=== PATIENT | male | born 1945 | race Two or more races ===

== ENCOUNTER 2025-07-16 12:08 | Inpatient (IN) | payer MEDICARE, OTHER ==
[~2025-07-16] VITALS: Ht 193 cm; Wt 76.9 kg
[2025-07-16 13:38] LABS: Hemoglobin 16.7 g/dL (13.5-17.5)
[2025-07-16 13:39] LABS: Hematocrit 51.4 % (41.0-53.0); Mean Corpuscular Hemoglobin 33.8 pg (28.0-32.0); Mean Corpuscular Volume 104.1 fL (80.0-100.0); Nucleated Red Blood Cells % 0.0 %
[2025-07-16 13:43] LABS: Potassium 3.6 mmol/L (3.5-5.1); Sodium 143 mmol/L (136-145)
[2025-07-16 13:44] LABS: Anion Gap 10 (5-15); Calcium 9.6 mg/dL (8.7-10.4); Carbon Dioxide 23 mmol/L (20-31)
--- NOTE | 2025-07-16 13:45 | ECG ---
[facility] Test Date: 2025-07-16 Test Time: 12:14:36 Pat Name: ZITA GHOSH Department: [facility] ED Patient ID: [facility]-[id number] Room: Gender: M Medical Technologist: CONCEPCION : 1945 Requested By: ROCÍO CHARLES Order Number: [id number] Reading MD: Graeme Sneed Measurements Intervals [place] Rate: 78 P: -41 [place]: 192 QRS: 7 QRSD: 157 T: 217 QT: 439 QTc: 501 Interpretive Statements Sinus rhythm Left bundle branch block Baseline wander in lead(s) II,III,aVR,aVF Electronically Signed On 07-16-2025 18:52:24 PDT by Graeme Sneed Please click the below link to view image of tracing.
[2025-07-16 13:49] LABS: BUN/Creatinine Ratio 13.7 (10.0-20.0); Blood Urea Nitrogen 22 mg/dL (9-23); Chloride 110 mmol/L (98-107); Glucose 143 mg/dL (74-106)
--- NOTE | 2025-07-16 14:01 | ED.PDOC ---
History of Present Illness HPI Comments 80 y/o M is BIBA with c/c of syncope. Per EMS personnel report, patient had a unprovoked syncopal episode onset, while standing in line in a smoke shop, earlier, today. Patient reports on becoming, suddenly, dizzy prior to passing out and was assisted to the ground without injury or trauma by bystanders. He also states on having chronic nausea, vomiting, and diarrhea secondary to undiagnosed GI-related issue that his PCP is unable to diagnosed. Denial of any bloody vomitus or stools, chest pain, shortness of breath, or further acute symptoms. Chief Complaint: Diarrhea Time Seen by MD: 12:45 Reviewed Notes: Nurses Notes, Extraction Supervisor Notes, Medications, Allergies Allergies: Coded Allergies: NO KNOWN ALLERGIES (Unverified , 07/16/25) Information Source: Patient, Emergency Med Personnel Mode of Arrival: EMS Severity: Moderate Timing: Hours Duration: Minutes Prehospital treatment: 12 Lead EKG, Accucheck, Geophysical Support Specialist Past Medical History Past Medical History (Other): Chronic GI issues Surgical History: Denies all surgeries Social History Smoker: Cigarettes Alcohol: Occasionally Drugs: Denies Drug Use Lives In: Home All Other Systems: Reviewed and Negative (Comprehensive review of systems are negative unless stated in HPI) Physical Exam General Appearance: Moderate Distress, Thin HEENT: Normal ENT Inspection, Pharynx Normal, TMs Normal Neck: Full Range of Motion, Non-Tender, Normal, Normal Inspection Respiratory: Chest Non-Tender, Lungs Clear, No Accessory Muscle Use, No Respiratory Distress, Normal Breath Sounds Cardiovascular: No Edema, No JVD, No Murmur, No Gallop, Normal Peripheral Pulses, Regular Rate/Rhythm Breast Exam: Deferred Gastrointestinal: No Organomegaly, Non Tender, No Pulsatile Mass, Normal Bowel Sounds, Soft Genitalia: Deferred Pelvic: Deferred Rectal: Deferred Extremities: No calf tenderness, Normal capillary refill, Normal inspection, Normal range of motion, Non-tender, No pedal edema Musculoskeletal : Apperance: Normal Neurologic: Alert, golf club maker II-XII nml as Tested, No Motor Deficits, Normal Affect, Normal Mood, No Sensory Deficits Cerebellar Function: Normal Reflexes: Normal Skin: Normal Color Peripheral Pulses: 3+ Radial (R), 3+ Radial (L) Lymphatic: No Adenopathy Was a procedure done? Was a procedure done?: No EKG EKG : Pulse Rate (adult): 78 [place]: Normal Cardiac Rhythm: NSR Block: LBBB Hypertrophy: None ST: Normal Differential Dx Considerations may include: vasovagal response, dehydration, electrolyte imbalance, malnutrition, gastritis, gastroenteritis, substance dependency, among others X-Ray, Labs, Meds, VS Vital Signs Date Time Temp Pulse Resp B/P (MAP) Pulse Ox O2 Delivery O2 Flow Rate FiO2 07/16/25 14:01 78 07/16/25 13:50 97.7 85 16 108/67 (81) 96 97.7 07/16/25 12:21 98.0 81 16 133/69 94 98.0 07/16/25 12:16 78 Lab Test 07/16/25 13:27 Range/Units White Blood Count 21.8 H 4.4-10.8 10^3/uL Red Blood Count 4.94 4.5-5.90 10^6/uL Hemoglobin 16.7 13.5-17.5 g/dL Hematocrit 51.4 41.0-53.0 % Mean Corpuscular Volume 104.1 H 80.0-100.0 fL Mean Corpuscular Hemoglobin 33.8 H 28.0-32.0 pg Mean Corpuscular Hemoglobin Concent 32.5 32.0-36.0 g/dL Red Cell Distribution Width 14.2 11.8-14.3 % Platelet Count 270 140-450 10^3/uL Mean Platelet Volume 7.8 6.9-10.8 fL Neutrophils (%) (Auto) 86.7 H 37.0-80.0 % Lymphocytes (%) (Auto) 3.8 L 10.0-50.0 % Monocytes (%) (Auto) 8.8 0.0-12.0 % Eosinophils (%) (Auto) 0.6 0.0-7.0 % Basophils (%) (Auto) 0.1 0.0-2.0 % Neutrophils # (Auto) 18.9 H 1.6-8.6 10 ^3/uL Lymphocytes # (Auto) 0.8 0.4-5.4 10 ^3/uL Monocytes # (Auto) 1.9 H 0-1.3 10 ^3/uL Eosinophils # (Auto) 0.1 0-0.8 10 ^3/uL Basophils # (Auto) 0 0-0.2 10 ^3/uL Nucleated Red Blood Cells 0.0 % Sodium Level 143 136-145 mmol/L Potassium Level 3.6 3.5-5.1 mmol/L Chloride Level 110 H 98-107 mmol/L Carbon Dioxide Level 23 20-31 mmol/L Anion Gap 10 5-15 Blood Urea Nitrogen 22 9-23 mg/dL Creatinine 1.61 H 0.700-1.30 mg/dL Glomerular Filtration Rate Calc 43 >90 mL/min BUN/Creatinine Ratio 13.7 10.0-20.0 Serum Glucose 143 H 74-106 mg/dL Calcium Level 9.6 8.7-10.4 mg/dL Current Medications Medications (Trade) Dose Ordered Sig/Jos Route Start Time Stop Time Status Last Admin Sodium Chloride 1,000 ml @ 1,000 mls/hr Q1H ONCE IV 07/16/25 12:15 07/16/25 13:14 DC 07/16/25 14:03 Patient alert. Came in because of diarrhea. Abdomen is soft. Vitals stable. Establish intravenous access. Was given fluids. Was given Rocephin. Was given Flagyl. Blood sugar elevated. Controlled with fluids. Explained to the patient. Continue monitoring. Time of 1ST Reevaluation: 13:15 Reevaluation 1ST: Unchanged Patient Education/Counseling: Diagnosis, Treatment Family Education/Counseling: No Family Present SEPSIS Sepsis Screen Date sepsis recognized/suspect: Jul 16, 2025 Time Sepsis recognized/suspect: 1224 Recent Procedure: No On Antibiotic Therapy: No Respiratory Rate >20: No Heart Rate >90: No Temp<36 C (96.8 F) or >38.3 C: No SBP <90 or MAP <65 mmHG: No New Acute Mental Status Change: No Is the patient on CPAP, BIPAP,: No Physician Orders Chest Portable (07/16/25 12:14) Urinalysis (07/16/25 12:14) Metronidazole 500mg/100ml (Flagyl 500mg/ (07/16/25 13:15) Blood Culture (07/16/25 14:06) Lactic Acid W/ Reflex Order (07/16/25 14:06) Vital Signs Date Time Temp Pulse Resp B/P (MAP) Pulse Ox O2 Delivery O2 Flow Rate FiO2 07/16/25 14:01 78 07/16/25 13:50 97.7 85 16 108/67 (81) 96 97.7 10/18/25 12:21 98.0 81 16 133/69 94 98.0 07/16/25 12:16 78 Laboratory Tests Test 07/16/25 13:27 White Blood Count 21.8 10^3/uL (4.4-10.8) H Medications Medications Dose Ordered Sig/Jos Route Start Time Stop Time Status Last Admin Dose Admin Sodium Chloride 1,000 ml @ 1,000 mls/hr Q1H ONCE IV 07/16/25 12:15 07/16/25 13:14 DC 07/16/25 14:03 Departure 1 Departure Time of Disposition: 14:08 Impression: Primary Impression: Colitis, enteritis, and gastroenteritis of presumed infectious origin Disposition: ADMITTED INPATIENT Admit to: Med Surg Condition: Guarded Critical Care Note Critical Care Time?: Yes (90 min-critical care time only) Stability Stability form required: No Heart Score Heart Score: Heart Score Response (Comments) Value History N/A 0 EKG N/A 0 Age N/A 0 Risk Factors N/A 0 Troponin N/A 0 Total 0 I personally scribed for ROCÍO CHARLES MD ([email or web address]) on 07/16/25 at 14:01. Electronically submitted by Shaji Alonso [email or web address]). ROCÍO CHARLES MD Jul 16, 2025 14:01
[2025-07-16] MEDS: SODIUM CHLORIDE 0.9% 1,000 ML IV ONE (14:03)
[2025-07-16] MEDS: ONDANSETRON HCL 4 MG/2 ML VIAL IV ONE (14:16)
[2025-07-16] MEDS: DIPHENOXYLATE W/ATROPINE 2.5 MG TAB PO ONE (14:17)
[2025-07-16 14:30] VITALS: PULSE 93; RESP 20; O2SAT 96
--- NOTE | 2025-07-16 14:33 | DVH ---
CHEST RADIOGRAPH Indication: sob Technique: XY CHEST PORTABLE Comparison: None FINDINGS: The cardiac silhouette is unremarkable. The lungs demonstrate left basilar airspace opacities.. The p ulmonary vasculature is unremarkable. Left costophrenic angle not well characterized. Aortic atheros clerotic disease. There is no pneumothorax. IMPRESSION: Left basilar airspace opacification
[2025-07-16 18:18] LABS: Urine Protein, UAD TRACE (Negative)
[2025-07-16] MEDS ORDERED: ACETAMINOPHEN 325 MG TAB PO PRN (19:00)
[2025-07-16] MEDS ORDERED: DOCUSATE SOD 100 MG CAP PO PRN (19:00)
[2025-07-16] MEDS ORDERED: ONDANSETRON HCL 4 MG/2 ML VIAL IV PRN (19:00)
[2025-07-16] MEDS ORDERED: MORPHINE SULFATE INJ 2 MG/ml SYRG IV PRN (20:30)
[2025-07-16] MEDS: SOD CHL 0.45% 1,000 ML IV SCH (20:30)
[2025-07-16] MEDS ORDERED: NITROGLYCERIN 0.4 MG SL TAB SL PRN (20:30)
--- NOTE | 2025-07-16 20:33 | DVHHP2 ---
History of Present Illness Reason for Visit: Colitis, enteritis, and gastroenteritis of presumed infectious origin History of Present Illness The patient is a 80-year-old male with past medical history of chronic GI problems who presented to [facility] ED for evaluation of syncope episode. As reported by EMS, patient had a syncopal episode earlier today, reports on becoming suddenly dizzy associated to the ground level fall without injury or trauma by bystanders. Patient states he has been experiencing chronic nausea, vomiting, and diarrhea secondary to undiagnosed GI related issue that his PCP is unable to diagnosed. Patient was seen and evaluated in the ED, laboratory data shows WBC 21.8, platelets 270, sodium 143, potassium 3.6, BUN 22, creatinine 1.61, glucose 143, calcium 9.6, blood pressure 128/58, heart rate 68, temperature 98.3 F, O2 saturation 96% on room air. Please see medication orders section in the computer. On my assessment, patient denied chest pain, no headache, dizziness, diaphoresis, shortness of breath, no abdominal pain, diarrhea at this moment, nausea, vomiting, fever, chills. Patient was admitted for further evaluation and medical management. Past Medical History Chronic GI issues Past Surgical History Denies all surgeries Family History Reviewed, noncontributory to the management of this case. Past Social History The patient lives at home, smokes cigarettes, drinks alcohol occasionally, denies illicit drugs abuse. Review of Systems Constitutional: Yes: Weakness; No: Fever, Chills, Sweats, Malaise, Other Eyes: No: Pain, Vision change, Conjunctivae inflammation, Eyelid inflammation, Other, Redness ENT: No: Ear pain, Ear discharge, Nose pain, Nose discharge, Nose congestion, Mouth pain, Mouth swelling, Throat pain, Throat swelling, Other Respiratory: No: Cough, Dry, Shortness of breath, SOB with excertion, Wheezing, Hemoptysis, Pleuritic Pain, Sputum, Wheezing, Other Cardiovascular: No: Chest Pain, Palpitations, Orthopnea, Paroxysmal Noc. Dyspnea, Edema, Lt Headedness, Other Gastrointestinal: Nausea, Vomiting, Abdominal Pain, Diarrhea; No: Constipation, Melena, Hematochezia, Other Genitourinary: No Dysuria, No Frequency, No Incontinence, No Hematuria, No Retention, No Other Musculoskeletal: No: other, neck pain, shoulder pain, arm pain, back pain, hand pain, leg pain, foot pain Skin: No: Rash, Lesions, Jaundice, Bruising, Other Neurological: No: Weakness, Numbness, Incoordination, Change in speech, Confusion, Seizures, Other Allergies: Coded Allergies: NO KNOWN ALLERGIES (Unverified , 07/16/25) Medications Current Medications Medications Dose Ordered Sig/Jos Route Start Time Stop Time Status Last Admin Dose Admin Ceftriaxone Sodium 50 ml @ 100 mls/hr DAILY@09 IV 07/17/25 09:00 Metronidazole 100 ml @ 100 mls/hr Q8HR IV 07/16/25 22:00 Sodium Chloride 1,000 ml @ 50 mls/hr Q20H IV 07/16/25 19:00 07/16/25 20:30 50 MLS/HR Acetaminophen 325 mg Q4HP PRN PO 07/16/25 19:00 Ondansetron HCl 4 mg Q4HP PRN IV 07/16/25 19:00 Docusate Sodium 100 mg BIDPRN PRN PO 07/16/25 19:00 Acetaminophen 650 mg Q6HP PRN PO 07/16/25 19:00 Exam Vital Signs Vital Signs Date Time Temp Pulse Resp B/P (MAP) Pulse Ox O2 Delivery O2 Flow Rate FiO2 07/16/25 19:30 97.9 73 16 119/64 (82) 96 97.9 07/16/25 14:30 Room Air* 0 21 General Appearance: Alert, Oriented X3, Cooperative, No acute distress HEENT: Atraumatic, PERRLA, EOMI, Mucous membr. moist/pink Respiratory: Normal air movement Cardiovascular: Regular rate, Normal S1, Normal S2, No murmurs Abdominal: Normal bowel sounds, Soft, No tenderness, No hepatospenomegaly, No masses Extremities: No clubbing, No cyanosis, No edema, Normal pulses, No tenderness/swelling Skin: No rashes, No significant lesion Neuro: Normal speech, Normal tone, Sensation intact, Cranial nerves 3-12 NL, Reflexes 2+, Other (Generalized weakness) Psych/Mental Status: Mental status NL, Mood NL Labs/Xrays Labs Test 07/16/25 18:02 07/16/25 14:17 07/16/25 13:27 Range/Units Urine Color Yellow Yellow Urine Clarity Clear Clear Urine pH 5.0 5.0-9.0 Urine Specific [place] 1.025 1.001-1.035 Urine Protein Trace H Negative Urine Ketones Negative Negative Urine Blood Negative Negative /uL Urine Nitrite Negative Negative Urine Bilirubin Negative Negative Urine Urobilinogen Normal Negative mg/dL Urine Leukocyte Esterase Negative Negative /uL Urine RBC 2 0 - 3 /hpf Urine Microscopic WBC 2 0-3 /HPF Urine Squamous Epithelial Cells Few <5 /hpf Urine Bacteria None seen None Seen /hpf Urine Hyaline Casts Mod 0 - 2 /lpf Urine Mucus Few None Seen Urine Sperm Present None Seen /hpf Urine Glucose Normal Normal mg/dL Lactic Acid Level 1.8 0.4-2.0 mmol/L White Blood Count 21.8 H 4.4-10.8 10^3/uL Red Blood Count 4.94 4.5-5.90 10^6/uL Hemoglobin 16.7 13.5-17.5 g/dL Hematocrit 51.4 41.0-53.0 % Mean Corpuscular Volume 104.1 H 80.0-100.0 fL Mean Corpuscular Hemoglobin 33.8 H 28.0-32.0 pg Mean Corpuscular Hemoglobin Concent 32.5 32.0-36.0 g/dL Red Cell Distribution Width 14.2 11.8-14.3 % Platelet Count 270 140-450 10^3/uL Mean Platelet Volume 7.8 6.9-10.8 fL Neutrophils (%) (Auto) 86.7 H 37.0-80.0 % Lymphocytes (%) (Auto) 3.8 L 10.0-50.0 % Monocytes (%) (Auto) 8.8 0.0-12.0 % Eosinophils (%) (Auto) 0.6 0.0-7.0 % Basophils (%) (Auto) 0.1 0.0-2.0 % Neutrophils # (Auto) 18.9 H 1.6-8.6 10 ^3/uL Lymphocytes # (Auto) 0.8 0.4-5.4 10 ^3/uL Monocytes # (Auto) 1.9 H 0-1.3 10 ^3/uL Eosinophils # (Auto) 0.1 0-0.8 10 ^3/uL Basophils # (Auto) 0 0-0.2 10 ^3/uL Nucleated Red Blood Cells 0.0 % Sodium Level 143 136-145 mmol/L Potassium Level 3.6 3.5-5.1 mmol/L Chloride Level 110 H 98-107 mmol/L Carbon Dioxide Level 23 20-31 mmol/L Anion Gap 10 5-15 Blood Urea Nitrogen 22 9-23 mg/dL Creatinine 1.61 H 0.700-1.30 mg/dL Glomerular Filtration Rate Calc 43 >90 mL/min BUN/Creatinine Ratio 13.7 10.0-20.0 Serum Glucose 143 H 74-106 mg/dL Calcium Level 9.6 8.7-10.4 mg/dL PATIENT: ZITA GHOSH ACCT: [id number] UNIT: [id number] : 1945 LOC: ER ROOM / BED: / AGE / SEX: 80 / M ADM STATUS: REG ER SERVICE 1214 ORDERING PHYSICIAN: ROCÍO CHARLES MD PROCEDURE(s): CXRP - CHEST PORTABLE REASON: sob ORDER NUMBER(s): [id number], ACCESSION NUMBER(s): [id number] CHEST RADIOGRAPH Indication: sob Technique: XY CHEST PORTABLE Comparison: None FINDINGS: The cardiac silhouette is unremarkable. The lungs demonstrate left basilar airspace opacities.. The pulmonary vasculature is unremarkable. Left costophrenic angle not well characterized. Aortic atherosclerotic disease. There is no pneumothorax. IMPRESSION: Left basilar airspace opacification SEPSIS Sepsis Screen Date sepsis recognized/suspect: Jul 16, 2025 Time Sepsis recognized/suspect: 1224 Recent Procedure: No On Antibiotic Therapy: No Respiratory Rate >20: No Heart Rate >90: No Temp<36 C (96.8 F) or >38.3 C: No SBP <90 or MAP <65 mmHG: No New Acute Mental Status Change: No Is the patient on CPAP, BIPAP,: No Physician Orders Electrocardigram (07/16/25 13:00) Blood Culture (07/16/25 14:06) Ceftriaxone 1gm/50ml (Rocephin) (07/17/25 09:00) Metronidazole 500mg/100ml (Flagyl 500mg/ (07/16/25 22:00) Sod Chl 0.45% (Sodium Chloride 0.45% Via (07/16/25 19:00) Allergies (07/16/25 18:50) Code Status (07/16/25 18:50) Oxygen Per Hour (07/16/25 18:50) Acetaminophen Tablet (Tylenol Tablet) (07/16/25 19:00) Ondansetron Hcl (Zofran) (07/16/25 19:00) Docusate Sodium Capsule (Colace Capsule) (07/16/25 19:00) Fall Risk Precautions In Place QSHIFT (07/16/25 18:50) Complete Blood Count (07/17/25 04:00) Comprehensive Metabolic Panel (07/17/25 04:00) Condition: Serious (07/16/25 18:50) Acetaminophen Tablet (Tylenol Tablet) (07/16/25 19:00) Clear Liq Diet (07/17/25 Breakfast) Maintain Bed Rest (07/16/25 18:50) Sequential Compression Device (07/16/25 ) Hemoglobin A1c (07/16/25:26) Admit (07/16/25:26) Nitroglycerin Sublingual (Ntrostat Subli (07/16/25 20:30) Morphine Sulfate Injection (07/16/25 20:30) Stat Ekg For Chest Pain (07/16/25:26) Notify Md Of Changes From Base (07/16/25 20:26) [employer] Solutions Consultant For 24 Hours (07/16/25 20:26) Emergency Dysrhythmia Protocol (07/16/25:) Rhythm Strips Once Every Shift (07/16/25 20:26) Oxygen By Nasal Cannula (07/16/25:26) Vital Signs Date Time Temp Pulse Resp B/P (MAP) Pulse Ox O2 Delivery O2 Flow Rate FiO2 07/16/25 19:30 97.9 73 16 119/64 (82) 96 97.9 07/16/25 18:00 69 19 128/58 (81) 96 07/16/25 16:00 73 18 119/65 (83) 92 07/16/25 14:30 93 20 96 Room Air* 0 21 07/16/25 14:30 98.3 93 20 114/73 (87) 96 98.3 07/16/25 14:01 78 07/16/25 13:50 97.7 85 16 108/67 (81) 96 97.7 Laboratory Tests Test 07/16/25 13:27 07/16/25 14:17 White Blood Count 21.8 10^3/uL (4.4-10.8) H Lactic Acid Level 1.8 mmol/L (0.4-2.0) Medications Medications Dose Ordered Sig/Jos Route Start Time Stop Time Status Last Admin Dose Admin Ceftriaxone Sodium 50 ml @ 100 mls/hr ONCE ONCE IV 07/16/25 13:15 07/16/25 13:44 DC 07/16/25 14:16 100 MLS/HR Diphenoxylate HCl/ Atropine 5 mg ONCE ONCE PO 07/16/25 13:15 07/16/25 13:16 DC 07/16/25 14:17 5 MG Metronidazole 100 ml @ 100 mls/hr ONCE ONCE IV 07/16/25 13:15 07/16/25 14:14 DC 07/16/25 14:16 100 MLS/HR Ondansetron HCl 4 mg ONCE ONCE IV 07/16/25 12:15 07/16/25 12:16 DC 07/16/25 14:16 4 MG Sodium Chloride 1,000 ml @ 50 mls/hr Q20H IV 07/16/25 19:00 07/16/25 20:30 50 MLS/HR Sodium Chloride 1,000 ml @ 1,000 mls/hr Q1H ONCE IV 07/16/25 12:15 07/16/25 13:14 DC 07/16/25 14:03 1,000 MLS/HR Assessment/Plan Assessment/Plan Colitis, enteritis, and gastroenteritis of presumed infectious origin Generalized weakness Intractable diarrhea Acute renal injury Leukocytosis, unspecified Plan 1. Admit to telemetry unit 2. Breathing treatment 3. Pain control management 4. IV antibiotic management 5. Management of fluids and electrolytes 6. Consultation for hospitalist 7. Diagnostic test chest x-ray 8. DVT prophylaxis-on SCDs 9. Repeat labs CBC, CMP in a.m. 10. Home medication reviewed and reconciled 11. Continue with current medical management 12. Treatment plan discussed with patient and RN. Patient verbalized understanding. Plan discussed with: Patient, Other (RN) My Orders Orders - KEYA ESPANA DNP Procedure Category Date Status Time Ceftriaxone 1gm/50ml PHA 07/17/25 In Process (Rocephin) 09:00 Metronidazole PHA 07/16/25 In Process 500mg/100ml (Flagyl 22:00 Sod Chl 0.45% (Sodium PHA 07/16/25 In Process Chloride 0.45% Via 19:00 Allergies RAJ 07/16/25 In Process 18:50 Code Status CODE 07/16/25 Transmitted 18:50 Oxygen Per Hour RT 07/16/25 Transmitted 18:50 Acetaminophen Tablet PHA 07/16/25 In Process (Tylenol Tablet) 19:00 Ondansetron Hcl PHA 07/16/25 In Process (Zofran) 19:00 Docusate Sodium PHA 07/16/25 In Process Capsule (Colace 19:00 Fall Risk Precautions RAJ 07/16/[address] 18:50 Complete Blood Count LAB 07/17/25 Verified 04:00 Comprehensive LAB 07/17/25 Verified Metabolic Panel 04:00 Condition: Serious RAJ 07/16/25 In Process 18:50 Acetaminophen Tablet PHA 07/16/25 In Process (Tylenol Tablet) 19:00 Clear Liq Diet DIET 07/17/25 Transmitted Breakfast Maintain Bed Rest RAJ 07/16/25 In Process 18:50 Sequential RAJ 07/16/25 In Process Compression Device Hemoglobin A1c LAB 07/16/25 Verified 20:26 Admit ADMIT 07/16/25 Verified 20:26 Nitroglycerin PHA 07/16/25 Verified Sublingual (Ntrostat 20:30 Morphine Sulfate PHA 07/16/25 Verified Injection 20:30 Stat Ekg For Chest RAJ 07/16/25 Verified Pain 20:26 Notify Md Of Changes RAJ 07/16/25 Verified From Base 20:26 [employer] Consultant For RAJ 07/16/25 Verified 24 Hours 20:26 Emergency Dysrhythmia RAJ 07/16/25 Verified Protocol 20:26 Rhythm Strips Once [facility] 07/16/25 Verified Every Shift 20:26 Oxygen By Nasal RT 07/16/25 Verified Cannula 20:26 Problem List: (1) Colitis, enteritis, and gastroenteritis of presumed infectious origin (2) Generalized weakness (3) Intractable diarrhea (4) Acute renal injury (5) Leukocytosis, unspecified Date of Service: Jul 16, 2025 Billing Provider: KEYA ESPANA DNP Common Visit Codes: [id number] INP/OBS CARE (HIGH) KEYA ESPANA DNP Jul 16, 2025 20:33
[2025-07-17 04:43] LABS: Nucleated Red Blood Cells % 0.1 %
[2025-07-17 04:46] LABS: Hematocrit 40.9 % (41.0-53.0); Hemoglobin 13.9 g/dL (13.5-17.5); Mean Corpuscular Hemoglobin 34.6 pg (28.0-32.0); Mean Corpuscular Volume 101.6 fL (80.0-100.0)
[2025-07-17 04:59] LABS: Alanine Aminotransferase 14 U/L (7-40); Albumin 3.7 g/dL (3.2-4.8); Alkaline Phosphatase 59 U/L (46-116); Anion Gap 7 (5-15); BUN/Creatinine Ratio 22.3 (10.0-20.0); Bilirubin, Total 1.1 mg/dL (0.2-1.0); Calcium 8.8 mg/dL (8.7-10.4); Carbon Dioxide 27 mmol/L (20-31); Glucose 82 mg/dL (74-106); Potassium 3.9 mmol/L (3.5-5.1); Sodium 144 mmol/L (136-145); Total Protein 6.9 g/dL (5.7-8.2)
[2025-07-17 05:22] LABS: Blood Urea Nitrogen 25 mg/dL (9-23); Chloride 110 mmol/L (98-107)
--- NOTE | 2025-07-17 13:54 | DVHPN2 ---
Reviewed: Care Plan, H&P, Labs, Medications, Previous Orders, Radiology Changes from previous H/P or p: No Changes Eyes: No Pain, No Vision change, No Conjunctivae inflammation, No Eyelid inflammation, No Other, No Redness ENT: No Ear pain, No Ear discharge, No Nose pain, No Nose discharge, No Nose congestion, No Mouth pain, No Mouth swelling, No Throat pain, No Throat swelling, No Other Cardiovascular: No Chest Pain, No Palpitations, No Orthopnea, No Paroxysmal Noc. Dyspnea, No Edema, No Lt Headedness, No Other Respiratory: No Cough, No Dry, No Shortness of breath, No SOB with excertion, No Wheezing, No Hemoptysis, No Pleuritic Pain, No Sputum, No Other Gastrointestinal: Nausea, Vomiting, Abdominal Pain, Diarrhea; No Constipation, No Melena, No Hematochezia, No Other Genitourinary: No Dysuria, No Frequency, No Incontinence, No Hematuria, No Retention, No Other Musculoskeletal: No other, No neck pain, No shoulder pain, No arm pain, No back pain, No hand pain, No leg pain, No foot pain Skin: No Rash, No Lesions, No Jaundice, No Bruising, No Other Objective Vitals Vital Signs Date Time Temp Pulse Resp B/P (MAP) Pulse Ox O2 Delivery O2 Flow Rate FiO2 07/17/25 08:43 58 07/17/25 08:00 97.7 22 151/70 (97) 98 97.7 07/17/25 07:30 Room Air* 0 21 Intake/Output Intake and Output 07/17/25 07:00 Intake Total 1750 ml Balance 1750 ml Intake IV Total 1750 ml Medications Current Medications Medications Dose Ordered Sig/Jos Route Start Time Stop Time Status Last Admin Dose Admin Ceftriaxone Sodium 50 ml @ 100 mls/hr DAILY@09 IV 07/17/25 09:00 07/17/25 08:57 100 MLS/HR Metronidazole 100 ml @ 100 mls/hr Q8HR IV 07/16/25 22:00 07/17/25 06:30 100 MLS/HR Sodium Chloride 1,000 ml @ 50 mls/hr Q20H IV 07/16/25 19:00 07/16/25 20:30 50 MLS/HR Acetaminophen 325 mg Q4HP PRN PO 07/16/25 19:00 Ondansetron HCl 4 mg Q4HP PRN IV 07/16/25 19:00 Docusate Sodium 100 mg BIDPRN PRN PO 07/16/25 19:00 Acetaminophen 650 mg Q6HP PRN PO 07/16/25 19:00 Nitroglycerin 0.4 mg Q5MINP PRN SL 07/16/25 20:30 Morphine Sulfate 2 mg Q30M PRN IV 07/16/25 20:30 Laboratory Results Laboratory Tests 07/17/25 03:10 Chemistry Test 07/17/25 03:10 Albumin 3.7 g/dL (3.2-4.8) Calcium Level 8.8 mg/dL (8.7-10.4) Total Protein 6.9 g/dL (5.7-8.2) LFT Test 07/17/25 03:10 Alanine Aminotransferase (ALT) 14 U/L (7-40) Alkaline Phosphatase 59 U/L (46-116) Aspartate Amino Transferase (AST) 22 U/L (13-40) Total Bilirubin 1.1 mg/dL (0.2-1.0) H Urinalysis Test 07/16/25 18:02 Urine Color Yellow (Yellow) Urine Clarity Clear (Clear) Urine pH 5.0 (5.0-9.0) Urine Specific [place] 1.025 (1.001-1.035) Urine Protein Trace (Negative) H Urine Ketones Negative (Negative) Urine Blood Negative /uL (Negative) Urine Nitrite Negative (Negative) Urine Bilirubin Negative (Negative) Urine Urobilinogen Normal mg/dL (Negative) Urine Leukocyte Esterase Negative /uL (Negative) Urine RBC 2 /hpf (0 - 3) Urine Microscopic WBC 2 /HPF (0-3) Urine Squamous Epithelial Cells Few /hpf (<5) Urine Bacteria None seen /hpf (None Seen) Urine Hyaline Casts Mod /lpf (0 - 2) Urine Mucus Few (None Seen) Urine Sperm Present /hpf (None Seen) Urine Glucose Normal mg/dL (Normal) Labs and/or images reviewed: Labs reviewed by me, Image(s) reviewed by me Assessment/Plan Assessment/Plan [place] [address], blood cultures urine cultures, Rocephin Flagyl Chronic Nausea vomiting unknown etiology: Labs were normal, CT chest abdomen pelvis without contrast Colitis, enteritis, and gastroenteritis of presumed infectious origin Generalized weakness Intractable diarrhea C diff studies bacterial cultures GI consult for Dr. Caruso Acute renal injury Leukocytosis, unspecified Moderate malnutrition Time spent 70 minutes Advanced care planning time 20 minutes Patient is full code Plan discussed with: Patient My Orders Orders - MILLIE BOURNE MD Procedure Category Date Status Time Covid19 Antigen Gricel LAB 07/17/25 Transmitted Rapid Influenza A&B LAB 07/17/25 Transmitted 13:50 Date of Service: Jul 17, 2025 Billing Provider: MILLIE BOURNE MD Common Visit Codes: [id number] CARE 30-74 MIN MILLIE BOURNE MD Jul 17, 2025 13:54
--- NOTE | 2025-07-17 15:44 | DVHINCON2 ---
Date of service: Jul 17, [address] Candace Desai Reason for Consultation Severe diarrhea with syncope History of Present Illness This 80-year-old female presented with the emergency room with complaints of syncopal episode patient has got severe weakness and tiredness and dizzy and passed out. Patient has got Crohn nausea vomiting and diarrhea No bleeding no hematemesis. Past Medical History Apparently has got some chronic GI problems Past Surgical History None Family History None Social History Occasional smoking and drinking Allergies: Coded Allergies: NO KNOWN ALLERGIES (Unverified , 07/16/25) Current Medications Current Medications Medications (Trade) Dose Ordered Sig/Jos Route PRN Reason Start Time Stop Time Status Last Admin Ceftriaxone Sodium 50 ml @ 100 mls/hr DAILY@09 IV 07/17/25 09:00 07/17/25 08:57 Metronidazole 100 ml @ 100 mls/hr Q8HR IV 07/16/25 22:00 07/17/25 14:28 Sodium Chloride 1,000 ml @ 50 mls/hr Q20H IV 07/16/25 19:00 07/17/25 15:30 Acetaminophen (Tylenol Tablet) 325 mg Q4HP PRN PO MILD PAIN (1-3 PAIN SCALE) 07/16/25 19:00 Ondansetron HCl (Zofran) 4 mg Q4HP PRN IV NAUSEA / VOMITING 07/16/25 19:00 Docusate Sodium (Colace Capsule) 100 mg BIDPRN PRN PO FOR CONSTIPATION 07/16/25 19:00 Acetaminophen (Tylenol Tablet) 650 mg Q6HP PRN PO PAIN SCALE 1-3 OR TEMP>100.4 07/16/25 19:00 Nitroglycerin (Ntrostat Sublingual) 0.4 mg Q5MINP PRN SL FOR CHEST PAIN 07/16/25 20:30 Morphine Sulfate 2 mg Q30M PRN IV FOR CHEST PAIN 07/16/25 20:30 Review of Systems Noncontributory Vital Signs Vital Signs Date Time Temp Pulse Resp B/P (MAP) Pulse Ox O2 Delivery O2 Flow Rate FiO2 07/17/25 14:04 62 07/17/25 08:00 97.7 22 151/70 (97) 98 97.7 07/17/25 07:30 Room Air* 0 21 Physical Exam Moderately built and nourished male in no acute distress but uncomfortable for the diarrhea and weakness HEENT examination no pallor Lungs clear Vascular unremarkable Abdomen is soft no tenderness no rigidity no guarding abdominal No masses Extremities no edema No focal deficits Labs showed that the chloride is 110 creatinine is 1.61 potassium was 4.7 hemoglobin is 16.7 white count is 21.8 Labs/Diagnostic Data Labs Test 07/17/25 03:10 07/16/25 18:02 07/16/25 14:17 07/16/25 13:27 Range/Units White Blood Count 9.4 # 4.4-10.8 10^3/uL Red Blood Count 4.03 L 4.5-5.90 10^6/uL Hemoglobin 13.9 # 13.5-17.5 g/dL Hematocrit 40.9 #L 41.0-53.0 % Mean Corpuscular Volume 101.6 H 80.0-100.0 fL Mean Corpuscular Hemoglobin 34.6 H 28.0-32.0 pg Mean Corpuscular Hemoglobin Concent 34.1 32.0-36.0 g/dL Red Cell Distribution Width 13.6 11.8-14.3 % Platelet Count 200 140-450 10^3/uL Mean Platelet Volume 8.2 6.9-10.8 fL Neutrophils (%) (Auto) 70.3 37.0-80.0 % Lymphocytes (%) (Auto) 17.7 10.0-50.0 % Monocytes (%) (Auto) 9.0 0.0-12.0 % Eosinophils (%) (Auto) 2.7 0.0-7.0 % Basophils (%) (Auto) 0.3 0.0-2.0 % Neutrophils # (Auto) 6.6 1.6-8.6 10 ^3/uL Lymphocytes # (Auto) 1.7 0.4-5.4 10 ^3/uL Monocytes # (Auto) 0.8 0-1.3 10 ^3/uL Eosinophils # (Auto) 0.3 0-0.8 10 ^3/uL Basophils # (Auto) 0 0-0.2 10 ^3/uL Nucleated Red Blood Cells 0.1 % Sodium Level 144 136-145 mmol/L Potassium Level 3.9 3.5-5.1 mmol/L Chloride Level 110 H 98-107 mmol/L Carbon Dioxide Level 27 20-31 mmol/L Anion Gap 7 5-15 Blood Urea Nitrogen 25 H 9-23 mg/dL Creatinine 1.12 0.700-1.30 mg/dL Glomerular Filtration Rate Calc 66 >90 mL/min BUN/Creatinine Ratio 22.3 H 10.0-20.0 Serum Glucose 82 74-106 mg/dL Calcium Level 8.8 8.7-10.4 mg/dL Total Bilirubin 1.1 H 0.2-1.0 mg/dL Aspartate Amino Transferase (AST) 22 13-40 U/L Alanine Aminotransferase (ALT) 14 7-40 U/L Alkaline Phosphatase 59 46-116 U/L Total Protein 6.9 5.7-8.2 g/dL Albumin 3.7 3.2-4.8 g/dL Urine Color Yellow Yellow Urine Clarity Clear Clear Urine pH 5.0 5.0-9.0 Urine Specific [place] 1.025 1.001-1.035 Urine Protein Trace H Negative Urine Ketones Negative Negative Urine Blood Negative Negative /uL Urine Nitrite Negative Negative Urine Bilirubin Negative Negative Urine Urobilinogen Normal Negative mg/dL Urine Leukocyte Esterase Negative Negative /uL Urine RBC 2 0 - 3 /hpf Urine Microscopic WBC 2 0-3 /HPF Urine Squamous Epithelial Cells Few <5 /hpf Urine Bacteria None seen None Seen /hpf Urine Hyaline Casts Mod 0 - 2 /lpf Urine Mucus Few None Seen Urine Sperm Present None Seen /hpf Urine Glucose Normal Normal mg/dL Lactic Acid Level 1.8 0.4-2.0 mmol/L Hemoglobin A1c 4.8 <5.7 % A1C Microbiology Date/Time Source Procedure Growth Status 07/16/25 14:17 Blood Blood Culture - Preliminary NO GROWTH AFTER 24 HOURS OF INCUBATION. Resulted Assessment 80-year-old with complaints of abdominal pain diarrhea complaints of chronic GI problems in the past no fever no chills. Complaints of dizziness no bleeding Abdomen is soft with no rigidity no guarding no significant tenderness except minimally in the left lower quadrant Impression is gastroenteritis possible C diff or other type of colitis infectious colitis to be ruled out Plan/Recommendation We will recommend stool studies O&P C&S C diff leukocytes Treat the antibiotics Infectious disease consult If diarrhea persists CT scan with oral contrast of the abdomen and pelvis May need GI endoscopic evaluation if other workup is negative and continues to have diarrhea and other symptoms. Thank you Dr. Zuly Aden discussed with: Patient BUTCH MARTÍNEZ MD Jul 17, 2025 15:44
--- NOTE | 2025-07-17 18:08 | DVH ---
CLINICAL HISTORY: Chronic Nausea vomiting and dizziness TECHNIQUE: CT of the chest, abdomen and pelvis was performed with IV contrast without IV contrast. Th is exam was performed according to our departmental dose optimization program. Up-to-date CT equipmen t and radiation dose reduction techniques are utilized as appropriate. 12.47 CTDI: 12.47 DLP: 972.14 COMPARISON: XY CHEST PORTABLE on DOS: 07/16/25 FINDINGS: CHEST FINDINGS: Lower Neck: Unremarkable Axilla, Mediastinum and Namita: No thoracic lymphadenopathy although there is limited evaluation of the namita in the absence of intravenous contrast. Heart and Great Vessels: Normal-sized heart with trace pericardial fluid. Mild ectasia of the ascendi ng thoracic aorta measuring 4.2 cm. Moderate calcified plaque in the thoracic aorta. Mild aortic valv e calcification. Coronary artery calcifications Up to moderate in the left anterior descending dior ry artery. Airway, Lungs and Pleura: Trachea and central airways are patent. There is centrilobular emphysema mo derate. Sub 5 mm nodules in the right middle lobe on series 3 images 43 and 46 and a 7 mm nodule in t he right lower lobe on series 3, image 54. Linear bibasilar scarring and/or atelectasis. No consolid ative pneumonia or pneumothorax. Trace bilateral pleural effusions. Chest Wall and Osseous Structures: Mild thoracic spondylosis. No destructive osseous lesion. Abdomen and Pelvis Findings: Liver and Biliary system: Normal-sized liver. No definite hepatic lesion. Mild nodular contour of th e liver. Gallbladder is mildly distended though without wall thickening. There is no biliary ductal d ilatation. Spleen: Unremarkable. Adrenal Glands and Kidneys: Mild thickening and Low-density of the bilateral adrenal glands. No hydro nephrosis or nephrolithiasis. Left renal hilar vascular calcifications. Pancreas and Retroperitoneum: Unremarkable. 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 There is moderate calcified plaque in the aortoiliac vessels. 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 Bowel, Mesentery and Peritoneal space: The small and large bowel loops are normal caliber. There is f luid-filled small and large bowel. Normal appendix. There is no free air or fluid collection. A nonob structed loop of small bowel in the right lower quadrant courses into a right inguinal hernia. The pr oximal sigmoid colon courses into the left inguinal hernia. Pelvis: Urinary bladder is mildly distended. Mild prostatomegaly. No pelvic lymphadenopathy. Abdominal wall and Osseous Structures: There are bilateral inguinal hernias containing fat as well as nonobstructed proximal sigmoid colon on the left and a nonobstructed loop of small bowel on the righ t. Multilevel lumbar spondylosis. There is bony demineralization. Moderate degenerative disc space n arrowing at L5-S1. No destructive osseous lesion. Minor right convexity scoliosis of the lumbar spine . IMPRESSION: Chest: 1. Moderate centrilobular emphysema. 2. A few right lung nodules measuring up to 7 mm in the right lower lobe. Recommend follow-up CT ches t in 3-6 months for re-evaluation. 3. There is 3-vessel calcified coronary artery disease up to moderate in the left anterior descending coronary artery. 4. Mild aortic valve calcification 5. Trace bilateral pleural effusions. Abdomen/pelvis: 1. Fluid-filled small and large bowel loops which may be reflect infectious or inflammatory enterocol itis. 2. Bilateral inguinal hernias containing nonobstructed proximal sigmoid colon on the left and a nonob structed loop of right lower quadrant small bowel on the right. 3. Aneurysm of the infrarenal abdominal aorta measuring 4.4 cm transverse and 4.4 cm AP. 4. 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 5. Mild prostatomegaly. 6. Mild nodular contour of the liver which could reflect fibrosis or cirrhosis. Correlate with clini selene history and LFTs.
[2025-07-17 20:00] VITALS: PULSE 68; RESP 15; O2SAT 97
[2025-07-17 20:38] LABS: COVID19 ANTIGEN SOFIA FIA NEGATIVE (NEGATIVE)
[2025-07-17 21:53] VITALS: PULSE 58; RESP 14; O2SAT 97
[2025-07-17 22:12] VITALS: BP 166/75; PULSE 58; RESP 12; TEMP 97.8; O2SAT 97
[2025-07-17 22:53] VITALS: BP 166/75; PULSE 58; RESP 12; TEMP 97.8; O2SAT 97
[2025-07-18] VITALS (8 sets, daily range): BP systolic 140–157; BP diastolic 66–99; PULSE 52–107; RESP 12–18; TEMP 97.4–99.4; O2SAT 95–97
--- NOTE | 2025-07-18 10:21 | DVHPN2 ---
Reviewed: Care Plan, H&P, Labs, Medications, Previous Orders, Radiology Changes from previous H/P or p: No Changes Eyes: No Pain, No Vision change, No Conjunctivae inflammation, No Eyelid inflammation, No Other, No Redness ENT: No Ear pain, No Ear discharge, No Nose pain, No Nose discharge, No Nose congestion, No Mouth pain, No Mouth swelling, No Throat pain, No Throat swelling, No Other Cardiovascular: No Chest Pain, No Palpitations, No Orthopnea, No Paroxysmal Noc. Dyspnea, No Edema, No Lt Headedness, No Other Respiratory: No Cough, No Dry, No Shortness of breath, No SOB with excertion, No Wheezing, No Hemoptysis, No Pleuritic Pain, No Sputum, No Other Gastrointestinal: Nausea, Vomiting, Abdominal Pain, Diarrhea; No Constipation, No Melena, No Hematochezia, No Other Genitourinary: No Dysuria, No Frequency, No Incontinence, No Hematuria, No Retention, No Other Musculoskeletal: No other, No neck pain, No shoulder pain, No arm pain, No back pain, No hand pain, No leg pain, No foot pain Skin: No Rash, No Lesions, No Jaundice, No Bruising, No Other Objective Vitals Vital Signs Date Time Temp Pulse Resp B/P (MAP) Pulse Ox O2 Delivery O2 Flow Rate FiO2 07/18/25 09:00 97.4 69 18 157/66 (96) 95 97.4 07/17/25 21:53 Room Air* 0 21 Intake/Output Intake and Output 07/18/25 07:00 Intake Total 850 ml Output Total 1800 ml Balance -950 ml Intake Oral 0 ml IV Total 850 ml Output Urine Total 1800 ml # Voids 5 # Bowel Movements 3 Medications Current Medications Medications Dose Ordered Sig/Jos Route Start Time Stop Time Status Last Admin Dose Admin Ceftriaxone Sodium 50 ml @ 100 mls/hr DAILY@09 IV 07/17/25 09:00 07/18/25 08:51 100 MLS/HR Metronidazole 100 ml @ 100 mls/hr Q8HR IV 07/16/25 22:00 07/18/25 05:21 100 MLS/HR Sodium Chloride 1,000 ml @ 50 mls/hr Q20H IV 07/16/25 19:00 07/17/25 15:30 50 MLS/HR Acetaminophen 325 mg Q4HP PRN PO 07/16/25 19:00 Ondansetron HCl 4 mg Q4HP PRN IV 07/16/25 19:00 Docusate Sodium 100 mg BIDPRN PRN PO 07/16/25 19:00 Acetaminophen 650 mg Q6HP PRN PO 07/16/25 19:00 Nitroglycerin 0.4 mg Q5MINP PRN SL 07/16/25 20:30 Morphine Sulfate 2 mg Q30M PRN IV 07/16/25 20:30 Laboratory Results Laboratory Tests 07/17/25 03:10 Urinalysis Test 07/16/25 18:02 Urine Color Yellow (Yellow) Urine Clarity Clear (Clear) Urine pH 5.0 (5.0-9.0) Urine Specific [place] 1.025 (1.001-1.035) Urine Protein Trace (Negative) H Urine Ketones Negative (Negative) Urine Blood Negative /uL (Negative) Urine Nitrite Negative (Negative) Urine Bilirubin Negative (Negative) Urine Urobilinogen Normal mg/dL (Negative) Urine Leukocyte Esterase Negative /uL (Negative) Urine RBC 2 /hpf (0 - 3) Urine Microscopic WBC 2 /HPF (0-3) Urine Squamous Epithelial Cells Few /hpf (<5) Urine Bacteria None seen /hpf (None Seen) Urine Hyaline Casts Mod /lpf (0 - 2) Urine Mucus Few (None Seen) Urine Sperm Present /hpf (None Seen) Urine Glucose Normal mg/dL (Normal) Microbiology Microbiology Date/Time Source Procedure Growth Status 07/16/25 14:17 Blood Blood Culture - Preliminary NO GROWTH AFTER 24 HOURS OF INCUBATION. Resulted Labs and/or images reviewed: Labs reviewed by me, Image(s) reviewed by me Assessment/Plan Assessment/Plan [place] [address], blood cultures negative, continue Rocephin Flagyl Chronic Nausea vomiting unknown etiology: Labs were normal, CT chest abdomen pelvis without contrast Acute enterocolitis rule out infectious etiology, stool for bacterial culture and C diff pending, GI consult by Dr. Caruso appreciated. Generalized weakness Intractable diarrhea C diff studies bacterial cultures GI consult for Dr. Caruso Acute renal injury Leukocytosis, unspecified Moderate malnutrition Time spent 50 minutes Advanced care planning time 20 minutes Patient is full code Plan discussed with: Patient My Orders Orders - MILLIE BOURNE MD Procedure Category Date Status Time Chst Ab Pel Wo Con-No CT 07/17/25 Resulted Iv/Oral 13:51 Stool Bacterial CASEY 07/17/25 In Process Culture 13:54 Clostridium Difficile CASEY 07/17/25 In Process Toxin 13:54 * [facility] [employer] CONS 07/17/25 Transmitted 13:55 Date of Service: Jul 18, 2025 Billing Provider: MILLIE BOURNE MD Common Visit Codes: [id number] INP/OBS CARE(HIGH) MILLIE BOURNE MD Jul 18, 2025 10:21
[2025-07-18] MEDS: ACETAMINOPHEN 325 MG TAB PO PRN (15:12)
--- NOTE | 2025-07-18 21:22 | DVHPN2 ---
Progress Note - Dictate Date Seen: Jul 18, 2025 Medical Necessity Reason Pt with a Central, PICC or Fol: No Subjective Patient is doing much better diarrhea is better fever no nausea no vomiting no melena or hematochezia vital signs Vital Sign Date Time Temp Pulse Resp B/P (MAP) Pulse Ox O2 Delivery O2 Flow Rate FiO2 07/18/25 21:00 99.4 64 18 146/75 (98) 95 99.4 07/18/25 20:00 Room Air* 0 21 Total Intake and Output 07/17/25 07/17/25 07/18/25 15:00 23:00 07:00 Intake Total 550 ml 200 ml 100 ml Output Total 1300 ml 500 ml Balance -750 ml -300 ml 100 ml medications Current Medications Medications Dose Ordered Sig/Jos Route Start Time Stop Time Status Last Admin Dose Admin Ceftriaxone Sodium 50 ml @ 100 mls/hr DAILY@09 IV 07/17/25 09:00 07/18/25 08:51 100 MLS/HR Metronidazole 100 ml @ 100 mls/hr Q8HR IV 07/16/25 22:00 07/18/25 21:03 100 MLS/HR Sodium Chloride 1,000 ml @ 50 mls/hr Q20H IV 07/16/25 19:00 07/18/25 13:52 50 MLS/HR Acetaminophen 325 mg Q4HP PRN PO 07/16/25 19:00 07/18/25 15:12 325 MG Ondansetron HCl 4 mg Q4HP PRN IV 07/16/25 19:00 Docusate Sodium 100 mg BIDPRN PRN PO 07/16/25 19:00 Acetaminophen 650 mg Q6HP PRN PO 07/16/25 19:00 Nitroglycerin 0.4 mg Q5MINP PRN SL 07/16/25 20:30 Morphine Sulfate 2 mg Q30M PRN IV 07/16/25 20:30 objective Abdomen is soft no tenderness no rigidity no guarding no masses Tolerated feeds well laboratory and microbiology Laboratory Tests 07/17/25 03:10 Test 07/17/25 03:10 Range/Units Serum Glucose 82 74-106 mg/dL Assessment/Plan 80-year-old with complaints of abdominal pain diarrhea complaints of chronic GI problems in the past no fever no chills. Complaints of dizziness no bleeding Abdomen is soft with no rigidity no guarding no significant tenderness except minimally in the left lower quadrant Impression is gastroenteritis possible Patient is doing much better and feeling better Recommend to increase feedings and more in the blood count is better can be discharged any time whenever okay with primary care from GI point of view will recommend to follow-up as an outpatient if symptoms persist Thank you Dr. Caruso Plan discussed with: Patient BUTCH CARUSO MD Jul 18, 2025 21:22
[2025-07-19] VITALS (7 sets, daily range): BP systolic 112–168; BP diastolic 70–90; PULSE 51–88; RESP 16–20; TEMP 97–99.3; O2SAT 89–97
--- NOTE | 2025-07-19 11:07 | DVHPN2 ---
Reviewed: Care Plan, H&P, Labs, Medications, Previous Orders, Radiology Changes from previous H/P or p: No Changes Eyes: No Pain, No Vision change, No Conjunctivae inflammation, No Eyelid inflammation, No Other, No Redness ENT: No Ear pain, No Ear discharge, No Nose pain, No Nose discharge, No Nose congestion, No Mouth pain, No Mouth swelling, No Throat pain, No Throat swelling, No Other Cardiovascular: No Chest Pain, No Palpitations, No Orthopnea, No Paroxysmal Noc. Dyspnea, No Edema, No Lt Headedness, No Other Respiratory: No Cough, No Dry, No Shortness of breath, No SOB with excertion, No Wheezing, No Hemoptysis, No Pleuritic Pain, No Sputum, No Other Gastrointestinal: Nausea, Vomiting, Abdominal Pain, Diarrhea; No Constipation, No Melena, No Hematochezia, No Other Genitourinary: No Dysuria, No Frequency, No Incontinence, No Hematuria, No Retention, No Other Musculoskeletal: No other, No neck pain, No shoulder pain, No arm pain, No back pain, No hand pain, No leg pain, No foot pain Skin: No Rash, No Lesions, No Jaundice, No Bruising, No Other Objective Vitals Vital Signs Date Time Temp Pulse Resp B/P (MAP) Pulse Ox O2 Delivery O2 Flow Rate FiO2 07/19/25 09:00 97.9 70 16 143/78 (99) 96 97.9 07/19/25 08:00 Room Air* 0 21 Intake/Output Intake and Output 07/19/25 07:00 Intake Total 4240 ml Output Total 650 ml Balance 3590 ml Intake Oral 1890 ml IV Total 2350 ml Output Urine Total 650 ml # Voids 10 # Bowel Movements 4 Medications Current Medications Medications Dose Ordered Sig/Jos Route Start Time Stop Time Status Last Admin Dose Admin Ceftriaxone Sodium 50 ml @ 100 mls/hr DAILY@09 IV 07/17/25 09:00 07/19/25 09:30 100 MLS/HR Metronidazole 100 ml @ 100 mls/hr Q8HR IV 07/16/25 22:00 07/19/25 05:12 100 MLS/HR Sodium Chloride 1,000 ml @ 50 mls/hr Q20H IV 07/16/25 19:00 07/19/25 07:28 50 MLS/HR Acetaminophen 325 mg Q4HP PRN PO 07/16/25 19:00 07/18/25 15:12 325 MG Ondansetron HCl 4 mg Q4HP PRN IV 07/16/25 19:00 Docusate Sodium 100 mg BIDPRN PRN PO 07/16/25 19:00 Acetaminophen 650 mg Q6HP PRN PO 07/16/25 19:00 Nitroglycerin 0.4 mg Q5MINP PRN SL 07/16/25 20:30 Morphine Sulfate 2 mg Q30M PRN IV 07/16/25 20:30 Laboratory Results Laboratory Tests 07/17/25 03:10 Urinalysis Test 07/16/25 18:02 Urine Color Yellow (Yellow) Urine Clarity Clear (Clear) Urine pH 5.0 (5.0-9.0) Urine Specific [place] 1.025 (1.001-1.035) Urine Protein Trace (Negative) H Urine Ketones Negative (Negative) Urine Blood Negative /uL (Negative) Urine Nitrite Negative (Negative) Urine Bilirubin Negative (Negative) Urine Urobilinogen Normal mg/dL (Negative) Urine Leukocyte Esterase Negative /uL (Negative) Urine RBC 2 /hpf (0 - 3) Urine Microscopic WBC 2 /HPF (0-3) Urine Squamous Epithelial Cells Few /hpf (<5) Urine Bacteria None seen /hpf (None Seen) Urine Hyaline Casts Mod /lpf (0 - 2) Urine Mucus Few (None Seen) Urine Sperm Present /hpf (None Seen) Urine Glucose Normal mg/dL (Normal) Microbiology Microbiology Date/Time Source Procedure Growth Status 07/17/25 18:37 Stool Clostridium difficile Toxin Assay - Final Complete 07/16/25 14:17 Blood Blood Culture - Preliminary NO GROWTH AFTER 48 HOURS OF INCUBATION. Resulted Labs and/or images reviewed: Labs reviewed by me, Image(s) reviewed by me Assessment/Plan Assessment/Plan [place] [address], blood cultures negative, continue Rocephin Flagyl for possible enterocolitis Chronic Nausea vomiting unknown etiology: Labs were normal, CT chest abdomen pelvis without contrast Acute enterocolitis infectious etiology ruled out, stool for bacterial culture negative and C diff negative, blood cultures negative GI consult by Dr. Caruso appreciated. Generalized weakness Intractable diarrhea C diff studies bacterial cultures GI consult for Dr. Caruso Acute renal injury Leukocytosis, unspecified Moderate malnutrition Time spent 50 minutes Advanced care planning time 20 minutes Patient is full code Sister Amira [phone] at bed side. To be discharged to senior care facility for IV antibiotics for two weeks Plan is acceptable to the patient and his sister. Plan discussed with: Patient Date of Service: Jul 19, 2025 Billing Provider: MILLIE BOURNE MD Common Visit Codes: [id number] INP/OBS CARE(HIGH) MILLIE BOURNE MD Jul 19, 2025 11:07
--- NOTE | 2025-07-19 11:17 | DVHDS2 ---
Discharge Summary Date of Admission Jul 16, 2025 at 20:26 Date of Discharge: Jul 19, 2025 Admitting Diagnosis Chronic diarrhea Wounds: None Labs/Diagnostic Data: Laboratory Results Test 07/17/25 20:05 07/17/25 19:39 07/17/25 03:10 07/16/25 18:02 Influenza Type A Antigen Negative (Negative) Influenza Type B Antigen Negative (Negative) SARS-CoV-2 Antigen (Rapid) Negative (NEGATIVE) POC Glucose 101 mg/dl (70-106) White Blood Count 9.4 10^3/uL (4.4-10.8) Red Blood Count 4.03 10^6/uL (4.5-5.90) Hemoglobin 13.9 g/dL (13.5-17.5) Hematocrit 40.9 % (41.0-53.0) Mean Corpuscular Volume 101.6 fL (80.0-100.0) Mean Corpuscular Hemoglobin 34.6 pg (28.0-32.0) Mean Corpuscular Hemoglobin Concent 34.1 g/dL (32.0-36.0) Red Cell Distribution Width 13.6 % (11.8-14.3) Platelet Count 200 10^3/uL (140-450) Mean Platelet Volume 8.2 fL (6.9-10.8) Neutrophils (%) (Auto) 70.3 % (37.0-80.0) Lymphocytes (%) (Auto) 17.7 % (10.0-50.0) Monocytes (%) (Auto) 9.0 % (0.0-12.0) Eosinophils (%) (Auto) 2.7 % (0.0-7.0) Basophils (%) (Auto) 0.3 % (0.0-2.0) Neutrophils # (Auto) 6.6 10 ^3/uL (1.6-8.6) Lymphocytes # (Auto) 1.7 10 ^3/uL (0.4-5.4) Monocytes # (Auto) 0.8 10 ^3/uL (0-1.3) Eosinophils # (Auto) 0.3 10 ^3/uL (0-0.8) Basophils # (Auto) 0 10 ^3/uL (0-0.2) Nucleated Red Blood Cells 0.1 % Sodium Level 144 mmol/L (136-145) Potassium Level 3.9 mmol/L (3.5-5.1) Chloride Level 110 mmol/L (98-107) Carbon Dioxide Level 27 mmol/L (20-31) Anion Gap 7 (5-15) Blood Urea Nitrogen 25 mg/dL (9-23) Creatinine 1.12 mg/dL (0.700-1.30) Glomerular Filtration Rate Calc 66 mL/min (>90) BUN/Creatinine Ratio 22.3 (10.0-20.0) Serum Glucose 82 mg/dL (74-106) Calcium Level 8.8 mg/dL (8.7-10.4) Total Bilirubin 1.1 mg/dL (0.2-1.0) Aspartate Amino Transferase (AST) 22 U/L (13-40) Alanine Aminotransferase (ALT) 14 U/L (7-40) Alkaline Phosphatase 59 U/L (46-116) Total Protein 6.9 g/dL (5.7-8.2) Albumin 3.7 g/dL (3.2-4.8) Urine Color Yellow (Yellow) Urine Clarity Clear (Clear) Urine pH 5.0 (5.0-9.0) Urine Specific Premier 1.025 (1.001-1.035) Urine Protein Trace (Negative) Urine Ketones Negative (Negative) Urine Blood Negative /uL (Negative) Urine Nitrite Negative (Negative) Urine Bilirubin Negative (Negative) Urine Urobilinogen Normal mg/dL (Negative) Urine Leukocyte Esterase Negative /uL (Negative) Urine RBC 2 /hpf (0 - 3) Urine Microscopic WBC 2 /HPF (0-3) Urine Squamous Epithelial Cells Few /hpf (<5) Urine Bacteria None seen /hpf (None Seen) Urine Hyaline Casts Mod /lpf (0 - 2) Urine Mucus Few (None Seen) Urine Sperm Present /hpf (None Seen) Urine Glucose Normal mg/dL (Normal) Test 07/16/25 14:17 07/16/25 13:27 Lactic Acid Level 1.8 mmol/L (0.4-2.0) Hemoglobin A1c 4.8 % A1C (<5.7) Other Laboratory Tests 07/17/25 03:10 Brief Hx & Hospital Course: 80 year-old male had syncopal episode while shopping and brought to the [place] [id number] found to be in sepsis. Also has chronic diarrhea started on Rocephin and Flagyl for possible enterocolitis patient also had nausea and vomiting all labs were normal CT chest abdomen pelvis without contrast was negative seen by GI Dr. Caruso stool cultures negative for bacterial cultures and also C diff was negative patient has improved with the IV antibiotics acute kidney injury resolved dehydration resolved with the IV fluids being discharged to long term facility. He will receive IV Rocephin Flagyl for two more weeks and physical therapy the plan is agreeable with the patient and his sister at the bedside Consults/Reason for consult GI Dr. Caruso Operations or Procedures CT abdomen pelvis without contrast Condition at Discharge: Fair Final Diagnosis/Problems List [place] [address], blood cultures negative, continue Rocephin Flagyl for possible enterocolitis Chronic Nausea vomiting unknown etiology: Labs were normal, CT chest abdomen pelvis without contrast Acute enterocolitis infectious etiology ruled out, stool for bacterial culture negative and C diff negative, blood cultures negative GI consult by Dr. Caruso appreciated. Generalized weakness Intractable diarrhea C diff studies bacterial cultures GI consult for Dr. Caruso Acute renal injury Leukocytosis, unspecified Moderate malnutrition Discharge Disposition: Senior Living Facility Discharge Instruct/Medications Diet: Regular Activity: Light activity Medications: Rocephin 1 g IV daily for two weeks Flagyl 500 mg IV Q 8 hours for two weeks No Active Prescriptions or Reported Meds 39 (Time taken for discharge summary 39 minutes) Discharge Statement: "Patient was advised to return to the ER or call 911 if any headaches, dizziness, shortness of breath, chest pain, abdominal pain, bleeding, fevers, or worsening of medical condition. Patient was counseled about treatment plan, medications, possible side effects, patientverbalized understanding. All questions were answered to the best of my ability. This discharge took greater then 30 minutes in planning, reviewing documentation, counseling the patient, and discussing with other team members." ASSESSMENT ASSESSMENT Hospital Course Improved Assessment [place] [address], blood cultures negative, continue Rocephin Flagyl for possible enterocolitis Chronic Nausea vomiting unknown etiology: Labs were normal, CT chest abdomen pelvis without contrast Acute enterocolitis infectious etiology ruled out, stool for bacterial culture negative and C diff negative, blood cultures negative GI consult by Dr. Caruso appreciated. Generalized weakness Intractable diarrhea C diff studies bacterial cultures GI consult for Dr. Caruso Acute renal injury Leukocytosis, unspecified Moderate malnutrition Date of Service: Jul 19, 2025 Billing Provider: MILLIE BOURNE MD Common Visit Codes: 65839-AWI/OBS DISCH DAY >30min MILLIE BOURNE MD Jul 19, 2025 11:17
[2025-07-20 01:00] VITALS: BP 107/64; PULSE 96; RESP 20; TEMP 97; O2SAT 97
== END 2025-07-19 17:55 | DRG 871 ==
LOC: ER 12:08 → EDBD 12:08 → OVERFLOW 20:26 → TELE-EAST 07-17 21:39
PROVIDERS: ADMIT Family Medicine; ATTEND Family Medicine
PROC: 05HA33Z Insertion of Infusion Device into Left Brachial Vein, Percutaneous Approach (ICD-10-PCS; principal; 2025-07-19)
PROC: B54NZZA Ultrasonography of Left Upper Extremity Veins, Guidance (ICD-10-PCS; 2025-07-19)
DX: A41.9 Sepsis, unspecified organism (principal); N17.0 Acute kidney failure with tubular necrosis; E44.0 Moderate protein-calorie malnutrition; E86.0 Dehydration; K52.9 Noninfective gastroenteritis and colitis, unspecified; F17.210 Nicotine dependence, cigarettes, uncomplicated; Z20.822 Contact with and (suspected) exposure to COVID-19; Z68.20 Body mass index [BMI] 20.0-20.9, adult
CPT/HCPCS: 36415; 71045; 71250; 74176; 80048; 80053; 81001; 82962; 83036; 83605; 85025; 87040; 87045; 87426; 87427; 87493; 87804; 93005; 96365; 96366; 97163; 99291; 99292; G0378; J2405; J3490